=== PATIENT | female | born 1990 | race Caucasian/White ===

== ENCOUNTER → 2019-10-19 08:43 | Outpatient (CLI) | payer BC, SELFPAY ==
--- NOTE | ~2019-10-19 | US_ITS ---
EXAMINATION: US thyroid DATE: 10/19/2019 09:01 INDICATION: Nontoxic goiter. TECHNIQUE: Multiple ultrasound images of the thyroid were obtained. COMPARISON: Ultrasound 11/19/2011 FINDINGS: The right thyroid lobe measures 5.8 x 2.2 x 2.3 cm. The left thyroid lobe measures 5.8 x 2.0 x 2.0 c m. The thyroid demonstrates diffusely coarsened echotexture. Vascularity is increased. IMPRESSION: 1. Heterogeneous, hypervascular thyroid, consistent with chronic lymphocytic (Roxie) thyroiditis. Reviewed, dictated and finalized at location B. IMPRESSION: 1. Heterogeneous, hypervascular thyroid, consistent with chronic lymphocytic (H ashimoto) thyroiditis.
== END ==
PROVIDERS: Visit Provider Internal Medicine Endocrinology, Diabetes & Metabolism
DX: E04.9 Nontoxic goiter, unspecified (principal)
CPT/HCPCS: 76536

== ENCOUNTER 2020-01-11 09:05 | Outpatient (NON) | payer BC, SELFPAY ==
[2020-01-12 06:47] LABS: SARS-CoV-2 RNA PCR Negative
== END 2020-01-11 09:06 ==
PROVIDERS: Visit Provider Obstetrics & Gynecology
DX: Z20.828 Contact with and (suspected) exposure to other viral communicable diseases (principal)
CPT/HCPCS: 87635; C9803; U0003

== ENCOUNTER 2020-05-09 08:31 | Outpatient (CLI) | payer BC, SELFPAY | END 2020-05-09 08:32 | disposition home or self-care (01) | LOC: ANHCOVIDVC 08:31 | PROVIDERS: PCP Obstetrics & Gynecology | DX: Z23 Encounter for immunization (principal) | CPT/HCPCS: 0001A; 91300 ==

== ENCOUNTER 2020-05-30 08:30 | Outpatient (CLI) | payer BC, SELFPAY | END 2020-05-30 08:31 | disposition home or self-care (01) | LOC: ANHCOVIDVC 08:30 | PROVIDERS: PCP Obstetrics & Gynecology | DX: Z23 Encounter for immunization (principal) | CPT/HCPCS: 0002A; 91300 ==

== ENCOUNTER 2021-02-23 09:57 | Outpatient (CLI) | payer BC, SELFPAY ==
[2021-02-23 13:12] LABS: SARS-CoV-2 RNA PCR Positive (Negative)
== END 2021-02-23 09:58 | disposition home or self-care (01) ==
LOC: CHSLAB 09:59
PROVIDERS: PCP Physician Assistant; Visit Provider Physician Assistant
DX: U07.1 COVID-19 (principal); R05.9 Cough, unspecified
CPT/HCPCS: C9803; U0003; U0005